=== PATIENT | female | born 1980 | race Caucasian/White ===

== ENCOUNTER 2017-04-02 09:50 | Emergency (ER) | payer BC ==
[~2017-04-02] VITALS: Ht 157.5 cm; Wt 104.9 kg
[2017-04-02 09:55] VITALS: BP 138/67; PULSE 117; TEMP 37; O2SAT 96; Ht 157.5 cm; Wt 104.9 kg
[2017-04-02 10:37] LABS: URINE APPEARANCE CLOUDY (CLEAR); URINE BILIRUBIN NEG (NEG); URINE COLOR YELLOW; URINE NITRITE NEG (NEG); URINE SPECIFIC GRAVITY 1.022 (1.000-1.030); UROBILINOGEN NEG (NEG); ZZUR CULT IF INDIC CLEAN CATCH YES
[2017-04-02 10:42] LABS: REVIEW REQ? YES
[2017-04-02 11:02] LABS: MANUAL MICROSCOPIC REQUIRED? YES; URINE RBC 0-4 /hpf (0-4); URINE WBC >30 /hpf (0-5)
[2017-04-02 11:03] LABS: URINE BACTERIA 1+ (NEG); URINE TRICHOMONAS PRESENT (NONE PRSENT)
--- NOTE | 2017-04-02 11:33 | EMERGENCY ROOM VISIT NOTE ---
History First contact with patient: 10:29 Chief Complaint: VAGINAL DISCHARGE Stated Complaint: BLOATING,FATIGUE,VAGINAL IRRITATION,ACKINESS History of Present Illness The patient is a 36 year old female who presents to the Emergency Room with complaints of vaginal discharge. The patient states that 2 weeks ago she noticed a significant amount of vaginal discharge. She states that she feels tired and bloated. She thought it was he stands tried Monistat for 3 days but did not have any improvement. She states that she has continued vaginal discharge and notices itching in the vaginal area. The patient took Excedrin one time. She reports dullness and soreness but not true pain. She denies any chills. She denies any chest pain, trouble breathing. She denies any true abdominal pain. She denies any diarrhea. She is actually active with 1 partner , her . She has never had a 60 transmitted infection in the past. Review of Systems A 10 system review of systems was completed with positives and pertinent negatives listed in the HPI. Past Medical/Surgical History Patient denies Social History Smoking Status: Former Smoker Marital Status: Housing Status: lives with family Current/Historical Medications Scheduled Metronidazole (Flagyl), 500 MG PO BID Allergies Coded Allergies: No Known Allergies (Unverified , 04/02/17) Physical Exam Vital Signs Date Time Temp Pulse Resp B/P Pulse Ox O2 Delivery O2 Flow Rate FiO2 04/02/17 09:55 37.0 117 18 138/67 96 Room Air Physical Exam VITALS: Vitals are noted on the nurse's note and reviewed by myself. Vital signs stable. GENERAL: This is a 36-year-old female, in no acute distress, nondiaphoretic, well-developed well-nourished. SKIN: The skin was without rashes, erythema, edema, or bruising. There is no tenting of the skin. Capillary reflex less than 2 seconds. HEAD: Normocephalic atraumatic. EARS: The external ears are normal in appearance. EYES: Pupils equal round and reactive to light and accommodation. Conjunctivae without injection, sclerae without icterus. Extraocular movements intact. NOSE: Patent, turbinates without inflammation or discharge. MOUTH: Mucous membranes moist. Tonsils are not enlarged. Pharynx without erythema or exudate. Uvula midline. Airway patent. Tongue does not deviate. NECK: Supple without nuchal rigidity. No lymphadenopathy. No thyromegaly. Cervical spine is nontender. No JVD. HEART: Regular rate and rhythm without murmurs gallops or rubs. LUNGS: Clear to auscultation bilaterally without wheezes, rales or rhonchi. No retractions or accessory muscle use. ABDOMEN: Positive bowel sounds x 4. Soft, mild diffuse tenderness, without masses or organomegaly. : There is diffuse irritation over the labia. There is a moderate amount of white discharge. There is no cervicitis or cervical motion tenderness. There is no adnexal mass. There is minimal right-sided adnexal tenderness. MUSCULOSKELETAL: No muscle atrophy, erythema, or edema noted. Full range of motion in all extremities. Normal gait. Strength 5/5 throughout. NEURO: Patient was alert and oriented to person place and time. No focal neurological deficits. Medical Decision & Procedures Laboratory Results Test 04/02/17 10:21 04/02/17 11:12 Urine Color YELLOW Urine Appearance CLOUDY (CLEAR) Urine pH 5.0 (4.5-7.5) Urine Specific [place] 1.022 (1.000-1.030) Urine Protein NEG (NEG) Urine Glucose (UA) NEG (NEG) Urine Ketones TRACE (NEG) Urine Occult Blood NEG (NEG) Urine Nitrite NEG (NEG) Urine Bilirubin NEG (NEG) Urine Urobilinogen NEG (NEG) Urine Leukocyte Esterase LARGE (NEG) Urine WBC (Auto) /hpf (0-5) Urine RBC (Auto) /hpf (0-4) Urine Hyaline Casts (Auto) /lpf (0-5) Urine Epithelial Cells (Auto) /lpf (0-5) Urine Bacteria (Auto) (NEG) Urine RBC 0-4 /hpf (0-4) Urine WBC >30 /hpf (0-5) Urine Epithelial Cells >30 /lpf (0-5) Urine Bacteria 1+ (NEG) Urine Trichomonas PRESENT (NONE PRSENT) Urine Yeast (Auto) (NONE PRSENT) Urine Test NEG (NEG) Date/Time Source Procedure Growth Status 04/02/17 11:12 Vaginal Swab Trichomonas Preparation - Final Complete ED Course The patient was seen and examined. Previous visits were reviewed. Medication list was reviewed. The patient presents emergency Department with vaginal irritation and discharge. She reports nonspecific bloating and diffuse discomfort over the abdomen. She is afebrile and has not had any nausea, vomiting, diarrhea. The patient has some minimal lower abdominal tenderness on examination. I discussed potentially performing laboratory studies and potentially imaging for further evaluation of the abdomen. The patient's symptoms do seem to be more pelvic in nature. After discussion, the patient would like to defer additional testing at this time. We also discussed the possibility of ovarian cyst but the patient states she has an appointment with her [employer] and will discuss it with them. A pelvic exam was performed. There was a moderate amount of whitish discharge. Pelvic cultures were sent. Urine test was negative. Trichomonas was found on the vaginal swab and on the urinalysis. The patient will be placed on Flagyl to cover for Trichomonas and potential bacterial vaginitis. She was advised that she would need to advise her sexual partners and they should also be treated for Trichomonas. I offered to treat the patient empirically for gonorrhea and chlamydia but she declines and would like to wait for the cultures. Her urinalysis suggests possible urinary tract infection versus contamination. Given the vaginal infection, this may be contamination. We will await urine culture. She was advised to stop the topical medications as this could be causing some irritation to the external genitalia. The patient should return to the ER with any worsening symptoms. The case was discussed with Dr. Morales who agrees with the assessment and treatment plan Medical Decision DIFFERENTIAL DIAGNOSIS: Pelvic inflammatory disease, ovarian cyst, ovarian torsion, ovarian rupture, , ectopic , endometriosis, endometritis, urinary tract infection, ruptured ovarian cyst, tubo-ovarian abscess, a Hepatitis, cholecystitis, cholangitis, biliary colic, pancreatitis, pneumonia, subdiaphragmatic abscess, appendicitis, inguinal hernia, nephrolithiasis, inflammatory bowel disease, mesenteric adenitis, peptic ulcer disease, GERD, gastritis, pancreatitis, myocardial infarction, pericarditis, ruptured aortic aneurysm, appendicitis, gastroenteritis, bowel obstruction, splenic infarct, diverticulitis, mesenteric ischemia, metabolic, peritonitis, among others. Impression Primary Impression: Infection due to trichomonas Additional Impression: Vaginal discharge Departure Information Dispostion Home / Self-Care Condition GOOD Prescriptions Metronidazole (Flagyl) 500 Mg Tab 500 MG PO BID for 7 Days, #14 TAB Prov: Demi Fry PA-C 04/02/17 Referrals No Doctor, Assigned (PCP) Patient Instructions ED Vaginitis Trichomonas, My [facility] Additional Instructions Stop the topical medications Flagyl every 12 hours for 7 days Have your urine rechecked by your doctor in 1 week; we will call you if the urine culture indicates the need to change treatment Your sexual partner should be treated as well for trichamonas Return with fevers or generalized worsening symptoms Problem Qualifiers
[2017-04-02] MEDS ORDERED: METR-163 PO (11:43)
[2017-04-03] MEDS ORDERED: ONDA4TAB10 SL (10:49)
--- NOTE | 2017-04-04 12:47 | Pharmacy Progress Note ---
ED Pharmacist Culture FollowUp Date of Service: April 04, 2017. Patient called 04/04 @ 1230 requesting culture results * Trichomonas: patient was already aware of the positive Trichomonas and is being treated with Flagyl * Gardnerella: informed of Gardnerella isolated in genital culture. Counseled that this is not considered a sexually transmitted infection, but does result more often in sexually active patients. No clue cells seen - may not be true infection. Patient was sent home with a prescription for metronidazole, which should cover this if it is a true infection. * Chlamydia and Gonorrhea serologies still pending. * Patient requested phone call if they are positive or negative * Patient provided verbal consent to leave results (*either* positive or negative) as a voicemail on the line below if she does not last picker * Discussed need for treatment if either results as positive * Patient confirmed contact number of
[2017-04-04 15:13] LABS: CHLAMYDIA TRACH RNA*** NOT DETECTED (NOT DETECTED); GC (NEIS GONORRHOEAE)RNA** NOT DETECTED (NOT DETECTED)
[2017-04-20] MEDS ORDERED: HYDR-5688 PO (05:44)
[2017-09-01] MEDS ORDERED: METR-163 PO (13:43)
== END 2017-04-02 11:55 | disposition home or self-care (01) ==
LOC: C.EDB 09:53
DX: A59.01 Trichomonal vulvovaginitis (principal); Z87.891 Personal history of nicotine dependence

== ENCOUNTER 2017-04-03 07:48 | Emergency (ER) | payer BC ==
[~2017-04-03] VITALS: Ht 157.5 cm; Wt 105.3 kg
[~2017-04-03 07:48] MED LIST: METR-163 PO
[2017-04-03 07:52] VITALS: TEMP 36.5; Ht 157.5 cm; Wt 105.3 kg
[2017-04-03] MEDS ORDERED: ONDANSETRON INJ 2 MG/ML 2 ML VIAL IV STA (08:27)
[2017-04-03] MEDS ORDERED: SODIUM CHLORIDE 0.9% 1000ML 1,000 ML IV STA (08:27)
[2017-04-03] MEDS ORDERED: KETOROLAC TROMETHAMINE 30 MG/ML VIAL IV STA (08:38)
--- NOTE | 2017-04-03 10:35 | EMERGENCY ROOM VISIT NOTE ---
History First contact with patient: 07:57 Chief Complaint: VOMITING Stated Complaint: SEVERE N,V, W/FOOD, ALVARADO, NECKACHE-POSS MED REACTION Nursing Triage Summary: On metronidazole for trichamoniasis and vaginosis, last night felt extreme nausea and headache. This morning felt a little better, was hydrating with water last night. Took another dose of antibiotic at 0500, felt immediatley nauseated , can't drink. Vomited that dose, this was only emesis today. Pt feels some soreness in neck and upper back, denies photophobia, is able to touch chin to chest with minor pain. Feels "clammy". History of Present Illness The patient is a 36 year old female who presents to the Emergency Room with complaints of nausea/vomiting, and headache that started last night. Patient was seen in this ER yesterday, diagnosed with trichomoniasis and vaginosis and started on metronidazole. Patient states she took her first dose of the metronidazole last night around 9 PM, which was followed shortly by the nausea and vomiting. She states she began to have a headache associated with the vomiting. She took her dose of metronidazole's morning at 5 AM after eating a small piece of bread, and continued to have severe nausea with vomiting. She denies vision changes, neck pain, dizziness, chest pain, shortness of breath, severe abdominal pain, vomiting blood or bile, fever/chills. She adamantly denies use of any alcohol. Review of Systems GENERAL: Denies fevers, chills, malaise, fatigue, unintentional weight changes. HEENT: Denies dizziness, visual problems, hearing loss, tinnitus. Denies difficulty swallowing or oral lesions. PULMONARY: Denies cough, shortness of breath, sputum production or hemoptysis. CARDIOVASCULAR: Denies chest pain, palpitations, dyspnea on exertion, orthopnea or peripheral edema. GASTROINTESTINAL: + Nausea/vomiting. Denies diarrhea, constipation, or abdominal pain. GENITOURINARY: Denies dysuria, frequency, urgency or nocturia. NEUROLOGIC: Denies history of epilepsy, CVA, TIA or chronic headaches. MUSCULOSKELETAL: Denies history of joint tenderness/swelling. SKIN: Denies rashes or lesions. PSYCHIATRIC: Denies history of depression or mental illness. ENDOCRINE: Denies history of diabetes, thyroid disorders, abnormal hair growth or sexual dysfunction. Social History Smoking Status: Former Smoker Marital Status: Housing Status: lives with family Current/Historical Medications Scheduled Metronidazole (Flagyl), 500 MG PO BID Ondasetron Odt (Zofran Odt), 4 MG SL BID Allergies Coded Allergies: No Known Allergies (Unverified , 04/03/17) Physical Exam Vital Signs Date Time Temp Pulse Resp B/P Pulse Ox O2 Delivery O2 Flow Rate FiO2 04/03/17 11:31 103/65 04/03/17 11:18 79 97 04/03/17 11:01 115/84 04/03/17 10:48 81 21 96 04/03/17 10:31 113/78 04/03/17 10:18 80 94 04/03/17 09:49 99/74 04/03/17 09:48 80 23 04/03/17 09:18 81 14 97 04/03/17 09:06 125/87 04/03/17 08:48 90 25 04/03/17 08:18 92 04/03/17 08:11 91 04/03/17 07:52 36.5 98 18 135/88 96 Room Air Physical Exam CONSTITUTIONAL: No acute distress. Well appearing and well nourished. Alert and oriented X 4 with normal affect. HEENT: Normocephalic, atraumatic. Pupils equal, round and reactive to light, EOMI. TMs normal. Pharynx normal. Dry mucous membranes. NECK: Supple, full active range of motion without discomfort. RESPIRATORY: Clear to auscultation bilaterally with no wheezing, crackles, rhonchi or stridor. Equal expansion bilaterally. CARDIOVASCULAR: Regular rate and rhythm with no murmurs, rubs or gallops. Normal peripheral perfusion. No edema. GASTROINTESTINAL: Soft, nontender, nondistended. Bowel sounds present in all quadrants. MUSCULOSKELETAL: Full range of motion of all joints without discomfort. INTEGUMENTARY: No rash or other significant dermatologic conditions noted. NEUROLOGIC: Cranial nerves II-XII grossly intact. No focal neurologic deficits noted. Normal motor, normal sensation, normal coordination, normal gait. Medical Decision & Procedures Medications Administered Medications (Trade) Dose Ordered Sig/Nia Route Start Time Stop Time Status Last Admin Dose Admin Sodium Chloride (Nss 1000ml) 1,000 ml @ 999 mls/hr Q1H1M STAT IV 04/03/17 08:27 04/03/17 09:27 DC 04/03/17 09:06 999 MLS/HR Ondansetron HCl (Zofran Inj) 4 mg NOW STAT IV 04/03/17 08:27 04/03/17 08:29 DC 04/03/17 09:07 4 MG Ketorolac Tromethamine (Toradol Inj) 15 mg NOW STAT IV 04/03/17 08:38 04/03/17 08:39 DC 04/03/17 09:07 15 MG Medical Decision CC: Patient presenting with complaint of nausea/vomiting and headache Differential Diagnosis: Includes, but not limited to medication reaction, dehydration, gastroenteritis, migraine headache, tension headache Summary: Patient was evaluated at bedside, history of physical exam performed. She is alert and in no acute distress, but does appear mildly uncomfortable. She does look mildly dehydrated. She is not actively vomiting or dry heaving, but does complain of persistent nausea. Orders were placed at bedside for IV fluids bolus, Zofran, and Toradol to treat for headache and side effects of medication. She had a negative test done yesterday. Patient discussed with Dr. Moise, who agrees with my assessment and plan. Patient symptoms seemed consistent with side effects related to recent start of Flagyl. This seems to be especially exacerbated by taking the food on an empty stomach and at on times of day. Patient was educated on proper administration of medication, and reinforced again not to take any alcohol with this medication. Patient reassessed multiple times throughout ED stay, with good improvement in her overall clinical state, she appears well and is tolerating oral fluids. She was instructed to continue the Flagyl regimen for the full course to treat her trichomoniasis. Rx for Zofran provided for symptom management. She was instructed to follow closely with her PCP. Impression Primary Impression: Nausea and vomiting Departure Information Dispostion Home / Self-Care Condition GOOD Prescriptions Ondasetron Odt (ZOFRAN ODT) 4 Mg Tab 4 MG SL BID for Nausea for 6 Days, #12 TAB Prov: Evette Hutchison CRNP 04/03/17 Referrals No Doctor, Assigned (PCP) Patient Instructions ED Nausea Vomiting, Metronidazole Oral tablet, [facility] Additional Instructions Drink plenty of fluids to stay well hydrated. Take the Zofran 20-30 minutes prior to taking the Flagyl medication. This will help to prevent nausea/vomiting. Continue taking the Flagyl as prescribed for the full course of antibiotics and do not skip any doses. Take this medication with a full meal, recommend breakfast and dinner. Do not resume sexual intercourse until both you and your partner have been fully treated. We recommend that you get retested prior to resuming sexual intercourse. Follow-up with your PCP in the next few days to be reassessed. Please return to the ER for worsening symptoms, including severe abdominal pain , vomiting blood or bile, fever/chills, or any other concerns. Problem Qualifiers Primary Impression: Nausea and vomiting Vomiting type: unspecified Vomiting Intractability: non-intractable Qualified Codes: R11.2 - Nausea with vomiting, unspecified
[2017-04-03] MEDS ORDERED: ONDA4TAB10 SL (10:49)
[2017-04-03 11:18] VITALS: PULSE 79; O2SAT 97
[2017-04-03 11:31] VITALS: BP 103/65
[2017-04-20] MEDS ORDERED: HYDR-5688 PO (05:44)
[2017-09-01] MEDS ORDERED: METR-163 PO (13:43)
== END 2017-04-03 11:38 | disposition home or self-care (01) ==
LOC: C.EDB 07:49
DX: R11.2 Nausea with vomiting, unspecified (principal); Z87.891 Personal history of nicotine dependence

== ENCOUNTER → 2017-04-12 | Outpatient (CLI) | payer BC ==
[~2017-04-12] MED LIST changes: +HYDR-5688 PO; +Tramadol PO
== END | disposition home or self-care (01) ==
LOC: C.LABSPEC 16:47
PROVIDERS: ATTEND Physician Assistant
DX: L29.8 Other pruritus (principal)

== ENCOUNTER → 2017-04-12 | Outpatient (CLI) | payer BC | END | disposition home or self-care (01) | LOC: C.PAPS 10:02 | PROVIDERS: ATTEND Physician Assistant | DX: Z01.419 Encounter for gynecological examination (general) (routine) without abnormal findings (principal) ==

== ENCOUNTER 2017-04-13 02:09 | Emergency (ER) | payer BC ==
[~2017-04-13] VITALS: Ht 157.5 cm; Wt 103.0 kg
[2017-04-13 02:16] VITALS: TEMP 36.5; Ht 157.5 cm; Wt 103.0 kg
[2017-04-13] MEDS ORDERED: ONDANSETRON INJ 2 MG/ML 2 ML VIAL IV STA (02:35)
[2017-04-13] MEDS ORDERED: MoRPHine SULFATE 4 MG/ML 1 ML CARP\\VIAL IV STA (02:35)
[2017-04-13] MEDS ORDERED: SODIUM CHLORIDE 0.9% 1000ML 1,000 ML IV STA ×2 (02:35)
[2017-04-13 02:55] VITALS: O2SAT 95
[2017-04-13 03:02] LABS: BASO % 0.7 %; BASO ABS # 0.05 K/uL (0-0.2); COMPLETE YES; EOS % 3.2 %; HEMATOCRIT 45.4 % (37-47); IG% 0.3 %; LYMPH % 28.2 %; LYMPH ABS # 2.11 K/uL (1.2-3.4); MEAN CELL VOLUME 81.5 fL (80-100); MEAN CORPUSCULAR HEMOGLOBIN 28.5 pg (25-34); MEAN PLATELET VOLUME 11.3 fL (7.4-10.4); MONO % 9.1 %; NEUT % 58.5 %; PLATELET COUNT 221 K/uL (130-400); RED BLOOD COUNT 5.57 M/uL (4.2-5.4); WHITE BLOOD COUNT 7.49 K/uL (4.8-10.8)
[2017-04-13 03:14] LABS: URINE APPEARANCE CLEAR (CLEAR); URINE BILIRUBIN NEG (NEG); URINE COLOR YELLOW; URINE EPITHELIAL CELL AUTO >30 /lpf (0-5); URINE NITRITE NEG (NEG); URINE SPECIFIC GRAVITY 1.013 (1.000-1.030); UROBILINOGEN NEG (NEG)
[2017-04-13 03:15] LABS: MANUAL MICROSCOPIC REQUIRED? NO; REVIEW REQ? NO
[2017-04-13 03:20] LABS: BUN/CREATININE RATIO 7.5 (10-20); CALCIUM 8.8 mg/dl (8.5-10.1); CREATININE 0.99 mg/dl (0.60-1.20); POTASSIUM 3.4 mmol/L (3.5-5.1)
[2017-04-13] MEDS ORDERED: OPTIRAY 320 IV PRN (05:45)
--- NOTE | 2017-04-13 06:24 | EMERGENCY ROOM VISIT NOTE ---
History First contact with patient: 02:16 Chief Complaint: ABDOMINAL PAIN Stated Complaint: ABD PAIN History of Present Illness The patient is a 36 year old female who presents to the Emergency Room with complaints of right upper quadrant pain for the past 2 weeks he was recently treated for Trichomonas along with her partner. Patient still complains of pelvic pain. This is her third visit to this ER for the same complaint. Patient had a negative gonorrhea and chlamydia test. Patient describe the pain as aching, ranging in severity 8 out of 10 that radiates to her shoulder. Nothing makes it better or worse. Patient denies chest pain, dyspnea, cough, congestion, back pain, urinary symptoms, vaginal itching or discharge. Patient saw her OB today and has a scheduled outpatient ultrasound. Review of Systems See HPI for pertinent positives & negatives. A total of 10 systems reviewed and were otherwise negative. Past Medical/Surgical History None Social History Smoking Status: Current Every Day Smoker Alcohol Use: occasionally Drug Use: none Marital Status: Housing Status: lives with family Current/Historical Medications No Active Prescriptions or Reported Meds Allergies Coded Allergies: No Known Allergies (Unverified , 04/13/17) Physical Exam Vital Signs Date Time Temp Pulse Resp B/P (MAP) Pulse Ox O2 Delivery O2 Flow Rate FiO2 04/13/17 05:09 84 16 111/72 96 Room Air 04/13/17 03:00 99 04/13/17 02:55 95 Room Air 04/13/17 02:16 36.5 118 20 119/82 98 Room Air Physical Exam VITALS: Vitals are noted on the nurse's note and reviewed by myself. Vital signs stable. GENERAL: Pleasant female, in no acute distress, nondiaphoretic, well-developed well-nourished. SKIN: The skin was without rashes, erythema, edema, or bruising. There is no tenting of the skin. Capillary reflex less than 2 seconds. HEAD: Normocephalic atraumatic. EARS: External auditory canals clear, tympanic membranes pearly singh without erythema or effusion bilaterally. EYES: Pupils equal round and reactive to light and accommodation. Conjunctivae without injection, sclerae without icterus. Extraocular movements intact. NOSE: Patent, turbinates without inflammation or discharge. MOUTH: Mucous membranes moist. Pharynx without erythema or exudate. Uvula midline. Airway patent. Tongue does not deviate. NECK: Supple without nuchal rigidity. No lymphadenopathy. No thyromegaly. Cervical spine is nontender. No JVD. HEART: Regular rate and rhythm without murmurs gallops or rubs. LUNGS: Clear to auscultation bilaterally without wheezes, rales or rhonchi. No dullness to percussion. No retractions or accessory muscle use. ABDOMEN: Positive bowel sounds x 4. Normal tympanic percussion. Soft, tender to palpation right upper quadrant, no CVA tenderness, without masses or organomegaly. No guarding or rebound tenderness. exam: Minimal suprapubic tenderness, normal external vaginal genitalia, no CMT or adnexal tenderness. Cultures taken and sent. Neighborhood Aide present MUSCULOSKELETAL: No muscle atrophy, erythema, or edema noted. NEURO: Patient was alert and oriented to person place and time. Normal sensation to light and sharp touch. No focal neurological deficits. Medical Decision & Procedures Laboratory Results 04/13/17 02:45 Red Blood Count 5.57, Mean Corpuscular Volume 81.5, Mean Corpuscular Hemoglobin 28.5, Mean Corpuscular Hemoglobin Concent 35.0, Mean Platelet Volume 11.3, Neutrophils (%) (Auto) 58.5, Lymphocytes (%) (Auto) 28.2, Monocytes (%) (Auto) 9.1, Eosinophils (%) (Auto) 3.2, Basophils (%) (Auto) 0.7, Neutrophils # (Auto) 4.39, Lymphocytes # (Auto) 2.11, Monocytes # (Auto) 0.68, Eosinophils # (Auto) 0.24, Basophils # (Auto) 0.05 04/13/17 02:45 Test 04/13/17 02:35 04/13/17 02:40 04/13/17 02:45 04/13/17 02:54 Urine Color YELLOW Urine Appearance CLEAR (CLEAR) Urine pH 5.0 (4.5-7.5) Urine Specific [place] 1.013 (1.000-1.030) Urine Protein NEG (NEG) Urine Glucose (UA) NEG (NEG) Urine Ketones NEG (NEG) Urine Occult Blood 1+ (NEG) Urine Nitrite NEG (NEG) Urine Bilirubin NEG (NEG) Urine Urobilinogen NEG (NEG) Urine Leukocyte Esterase NEG (NEG) Urine WBC (Auto) 1-5 /hpf (0-5) Urine RBC (Auto) 0-4 /hpf (0-4) Urine Hyaline Casts (Auto) 1-5 /lpf (0-5) Urine Epithelial Cells (Auto) >30 /lpf (0-5) Urine Bacteria (Auto) NEG (NEG) White Blood Count 7.49 K/uL (4.8-10.8) Red Blood Count 5.57 M/uL (4.2-5.4) Hemoglobin 15.9 g/dL (12.0-16.0) Hematocrit 45.4 % (37-47) Mean Corpuscular Volume 81.5 fL (80-100) Mean Corpuscular Hemoglobin 28.5 pg (25-34) Mean Corpuscular Hemoglobin Concent 35.0 g/dl (32-36) Platelet Count 221 K/uL (130-400) Mean Platelet Volume 11.3 fL (7.4-10.4) Neutrophils (%) (Auto) 58.5 % Lymphocytes (%) (Auto) 28.2 % Monocytes (%) (Auto) 9.1 % Eosinophils (%) (Auto) 3.2 % Basophils (%) (Auto) 0.7 % Neutrophils # (Auto) 4.39 K/uL (1.4-6.5) Lymphocytes # (Auto) 2.11 K/uL (1.2-3.4) Monocytes # (Auto) 0.68 K/uL (0.11-0.59) Eosinophils # (Auto) 0.24 K/uL (0-0.5) Basophils # (Auto) 0.05 K/uL (0-0.2) RDW Standard Deviation 39.4 fL (36.4-46.3) RDW Coefficient of Variation 13.1 % (11.5-14.5) Immature Granulocyte % (Auto) 0.3 % Immature Granulocyte # (Auto) 0.02 K/uL (0.00-0.02) Anion Gap 10.0 mmol/L (3-11) Est Creatinine Clear Calc Drug Dose 86.7 ml/min Estimated GFR () 83.8 Estimated GFR (Non- 72.3 BUN/Creatinine Ratio 7.5 (10-20) Calcium Level 8.8 mg/dl (8.5-10.1) Total Bilirubin 0.6 mg/dl (0.2-1) Direct Bilirubin 0.1 mg/dl (0-0.2) Aspartate Amino Transf (AST/SGOT) 12 U/L (15-37) Alanine Aminotransferase (ALT/SGPT) 33 U/L (12-78) Alkaline Phosphatase 41 U/L (45-117) Total Protein 7.6 gm/dl (6.4-8.2) Albumin 4.0 gm/dl (3.4-5.0) Lipase 107 U/L (73-393) Bedside Lactic Acid Venous 1.42 mmol/L (0.90-1.70) Medications Administered Medications (Trade) Dose Ordered Sig/Nia Route Start Time Stop Time Status Last Admin Dose Admin Sodium Chloride 1,000 ml @ 999 mls/hr Q1H1M STAT IV 04/13/17 02:35 04/13/17 03:35 DC 04/13/17 03:13 999 MLS/HR Ondansetron HCl (Zofran Inj) 4 mg NOW STAT IV 04/13/17 02:35 04/13/17 02:37 DC 04/13/17 03:13 4 MG Morphine Sulfate (MoRPHine SULFATE INJ) 4 mg NOW STAT IV 04/13/17 02:35 04/13/17 02:37 DC 04/13/17 03:13 4 MG ED Course Prior records/ancillary studies reviewed. Triage Nursing notes reviewed. Additional history obtained from family. The patient's history was concerning for abdominal pain. Differential diagnosis: Etiologies such as STI, appendicitis, diverticulitis, PUD, biliary pathology, UTI, pancreatitis, obstruction, mesenteric ischemia, aortic pathology, infections, inflammatory bowel disease, renal colic, as well as others were entertained. Physical examination findings: As above. ER treatment provided: NSS, morphine, zofran On reassessment the patient felt better. Diagnostics interpreted by me: The labs revealed no worrisome leukocytosis. Negative urine. GC chlamydia pending Imaging studies: CT ABDOMEN & PELVIS: Liver, gallbladder, spleen, pancreas, adrenal glands are unremarkable. Kidneys similar in size and enhancement. No hydronephrosis or perinephric stranding. Normal appendix. No evidence of bowel obstruction. No diverticulitis. Bladder wall thickening, correlate with urinalysis for possible cystitis. No acute osseous findings. Radiologist: Bro Nettles M.D. Gallbladder Ultrasound concerning for sludge. Pelvic ultrasound concerning for endometrial polyp Exam and history seem consistent with right upper quadrant pain most likely biliary colic and pelvic pain. Patient saw OB today. She is advised to follow- up for this and for further workup. She is advised to see the family care for further workup for biliary colic and elevation hida scan. She is advised to avoid fatty foods. She is advised to return to the immediate for fevers, pain, worsening signs or symptoms or as needed. Patient did not have acute abdomen on exam. She is well-appearing. By the evaluation outlined above emergent etiologies such as appendicitis, diverticulitis, PUD, UTI, pancreatitis, obstruction, mesenteric ischemia, aortic pathology, infections, inflammatory bowel disease, renal colic, as well as others were deemed relatively unlikely. The pt informed about the findings as listed above. All questions were answered and pleased with the treatment. Return instructions were outlined and the patient was discharged in stable condition. Referral: The patient was referred back to their primary care physician and [facility] for follow-up in 2 to 3 days for a recheck of the current condition. Case reviewed with my attending. Medical Decision As above Impression Primary Impression: Biliary colic Additional Impressions: Pelvic pain Endometrial polyp Departure Information Dispostion Home / Self-Care Condition GOOD Prescriptions No Active Prescriptions or Reported Meds Referrals No Doctor, Assigned (PCP) Patient Instructions [facility] Additional Instructions Ibuprofen(Motrin, Advil) may be used for fever or pain. Use 600mg every six hours as needed. Take with food. Avoid using more than 2400mg in a 24 hour period. Do not use 2400mg per day for more than three consecutive days without physician direction. Prolonged inappropriate use can lead to stomach upset or ulcers. (AND/OR) Acetaminophen(Tylenol) may be used for fever or pain. Use 1000mg every six hours as needed. Avoid using more than 3000mg in a 24 hour period. Rest and drink plenty of fluids as tolerated. Continue current medications. Avoid strenuous activities and anything that worsens your pain. Resume normal activities once your symptoms resolve. Avoid fatty foods. Return to the ER immediately for abdominal pain, vomiting, fevers, chest pains, difficulty breathing, worsening of your condition, or as needed. Follow up with your primary physician in 2-3 days for a recheck of your current condition and for further workup on her gallbladder. Follow up with your [facility] doctor in 2-3 days for further workup. Call in today and let them know that you tend and ultrasound. Problem Qualifiers
[2017-04-13 06:54] VITALS: BP 116/67; PULSE 85; O2SAT 97
--- NOTE | 2017-04-13 07:35 | DIAGNOSTIC IMAGING REPORT ---
ULTRASOUND RIGHT UPPER QUADRANT ABDOMEN CLINICAL HISTORY: Right upper quadrant abdominal pain. COMPARISON STUDY: No priors. TECHNIQUE: Real-time, grayscale, and color flow sonography of the right upper quadrant of the abdomen was performed. Images are reviewed in the transverse and longitudinal planes. FINDINGS: Liver: The liver is normal in top normal in size and demonstrates heterogeneously increased echotexture consistent with hepatic steatosis. There is no intrahepatic biliary ductal dilatation. The main portal vein is patent. Gallbladder: The gallbladder is normal in appearance. No gallstones are identified. There is no gallbladder wall thickening or pericholecystic fluid. A sonographic Stokes's sign is reportedly absent. The common bile duct measures up to 0.4 cm in diameter. Pancreas: Visualized portions of the pancreatic head and body are normal in appearance. The splenic vein is patent. Right kidney: Survey images of the right kidney demonstrate normal size and echotexture. There is no hydronephrosis. Ascites: None. IMPRESSION: 1. No acute sonographic abnormality is identified in the right upper quadrant. No gallstones are seen. 2. Hepatic steatosis. Electronically signed by: Mark Anthony Bernal M.D. 04/13/2017 7:34 AM Dictated Date/Time: 04/13/2017 7:32 AM
--- NOTE | 2017-04-13 07:46 | DIAGNOSTIC IMAGING REPORT ---
CT SCAN OF THE ABDOMEN AND PELVIS WITH IV CONTRAST CLINICAL HISTORY: Right upper quadrant abdominal pain. COMPARISON STUDY: Abdominal ultrasound dated 04/13/2017. TECHNIQUE: Following the IV administration of 118 cc of Optiray 320, CT scan of the abdomen and pelvis is performed from the lung bases to the proximal femora. Images are reviewed in the axial, sagittal, and coronal planes. IV contrast was administered without complication. Automated dose control exposure was utilized. CT DOSE: 1152.02 mGy.cm FINDINGS: Lung bases: The heart is normal in size and without pericardial effusion. The lung bases are clear noting dependent hypoventilatory change. Liver: The contrast-enhanced liver is mildly enlarged, measuring 18.5 cm in length. The liver demonstrates diffusely diminished attenuation consistent with hepatic steatosis. Fatty sparing is seen adjacent to the gallbladder fossa. There is no intrahepatic biliary ductal dilatation. The hepatic veins and portal veins are patent. Gallbladder: Unremarkable. Spleen: Normal in size and attenuation. Pancreas: Mildly atrophic for age. Adrenal glands: Unremarkable. Kidneys: The contrast enhanced kidneys are normal in size and without hydronephrosis. The kidneys enhance symmetrically. Abdominal vasculature: The abdominal aorta is normal in course and caliber. Bowel: The small bowel and colon are normal in course and caliber. The appendix is well-visualized and normal. Peritoneum: There is no intraperitoneal free air or abdominal ascites. There is a fat-containing umbilical hernia. Lymphadenopathy: None. Pelvic viscera: The bladder is decompressed and appears circumferentially thick walled. The uterus and adnexa are normal as visualized noting bilateral ovarian follicles. Calcified phleboliths are noted in the pelvis. Skeletal structures: No lytic or blastic lesions are seen. IMPRESSION: 1. Although decompressed, the bladder wall appears thickened. Cortical clinically and with urinalysis for evidence of cystitis. 2. No additional infectious or inflammatory findings are suggested in the abdomen or pelvis. 3. Hepatomegaly and hepatic steatosis. Electronically signed by: Mark Anthony Bernal M.D. 04/13/2017 7:45 AM Dictated Date/Time: 04/13/2017 7:41 AM
--- NOTE | 2017-04-13 07:58 | DIAGNOSTIC IMAGING REPORT ---
PELVIC ULTRASOUND CLINICAL HISTORY: Pelvic pain. COMPARISON STUDY: None. TECHNIQUE: Transabdominal and transvaginal sonography of the pelvis was performed. FINDINGS: The uterus measures 6.7 x 3.4 x 4.4 cm. The endometrial measures 9 mm in thickness note. Note is made of a 1 x 0.6 x 1 cm echogenic lesion within the superior aspect of the endometrium. This could reflect a polyp. The right ovary measures 2.6 x 1.2 x 1.5 cm and the left measures 3.9 x 1.3 x 2.5 cm. There is a dominant follicle within the left ovary. Color flow is identified within each ovary. There is no free fluid. There is apparent debris within the bladder. IMPRESSION: 1. No evidence of ovarian torsion. 2. No free fluid. 3. 1 cm echogenic lesion within the endometrium which may reflect a polyp. Gynecologic consultation is recommended. Electronically signed by: Julius Ledesma M.D. 04/13/2017 7:57 AM Dictated Date/Time: 04/13/2017 7:54 AM
[2017-04-16 11:29] LABS: CHLAMYDIA TRACH RNA*** NOT DETECTED (NOT DETECTED); GC (NEIS GONORRHOEAE)RNA** NOT DETECTED (NOT DETECTED)
[2017-04-20] MEDS ORDERED: HYDR-5688 PO (05:44)
[2017-09-01] MEDS ORDERED: METR-163 PO (13:43)
== END 2017-04-13 06:55 | disposition home or self-care (01) ==
LOC: C.EDB 02:10
DX: K80.50 Calculus of bile duct without cholangitis or cholecystitis without obstruction (principal); R10.2 Pelvic and perineal pain; N84.0 Polyp of corpus uteri; F17.200 Nicotine dependence, unspecified, uncomplicated

== ENCOUNTER → 2017-04-17 | Outpatient (CLI) | payer BC ==
[~2017-04-17] MED LIST changes: +MoRPHine SULFATE 2 MG/ML CARP ONE
--- NOTE | 2017-04-17 14:38 | DIAGNOSTIC IMAGING REPORT ---
NUCLEAR MEDICINE HEPATOBILIARY SCAN CLINICAL HISTORY: Right upper quadrant tenderness. Positive Stokes sign. COMPARISON: Right upper quadrant ultrasound and CT of the abdomen and pelvis April 13, 2017. TECHNIQUE: 5.5 mCi of technetium 99m Choletec IV was injected at 1:00 PM on April 17, 2017. Immediately following injection, imaging of the abdomen was carried out for 60 minutes in the anterior projection. Gallbladder activity was not identified at 60 minutes and therefore 2 mg of morphine was administered IV. Imaging was carried out for an additional 15 minutes. FINDINGS: Hepatic uptake of radiotracer is prompt and homogeneous. Activity is first identified within the common bile duct and the small bowel bowel at 10 minutes. Gallbladder activity is not identified at 60 minutes. Gallbladder activity was identified 15 minutes following morphine administration. IMPRESSION: 1. No evidence of acute cholecystitis. 2. Delayed visualization of gallbladder activity which suggests chronic cholecystitis. Electronically signed by: Julius Ledesma M.D. 04/17/2017 2:37 PM Dictated Date/Time: 04/17/2017 2:32 PM
== END | disposition home or self-care (01) ==
LOC: C.NUCL 12:38
PROVIDERS: ATTEND Physician Assistant
DX: R10.811 Right upper quadrant abdominal tenderness (principal)

== ENCOUNTER 2017-04-19 09:28 | Observation (INO) | payer BC ==
[2017-04-19] VITALS (7 sets, daily range): BP systolic 91–112; BP diastolic 59–72; PULSE 60–83; TEMP 36.6–37.1; O2SAT 93–96; Ht 160 cm; Wt 101.0 kg
[~2017-04-19] VITALS: Ht 160 cm; Wt 101.0 kg
--- NOTE | 2017-04-19 09:51 | History and Physical ---
History & Physical Date Apr 19, 2017. Chief Complaint RUQ abd pain History of Present Illness The patient is a 36 year old female with complaints of Additional History Hepatic Disease: No Endocrine Disorder: No Kidney Disease: No Hypertension: No Heart Disease: No Infectious Diseases: Yes (vaginitis) Allergies Coded Allergies: No Known Allergies (Unverified , 04/13/17) Home Medications No Active Prescriptions or Reported Meds Physical Examination Skin: warm/dry, no rash Eyes: sclerae normal Head: atraumatic Neck: supple Respiratory/Chest: no respiratory distress Cardiovascular: regular rate, rhythm Abdomen / GI: + pertinent finding (soft) Neurologic/Psych: alert Diagnosis chronic cholecystitis Plan of Treatment for laparoscopic cholecystectomy today
[2017-04-19] MEDS ORDERED: ONDANSETRON INJ 2 MG/ML 2 ML VIAL IV PRN ×2 (10:00→12:30)
[2017-04-19] MEDS ORDERED: HYDROmorphone INJ 1 MG/ML SYR IV PRN ×2 (10:00)
[2017-04-19] MEDS ORDERED: PROMETHAZINE HCL INJ 25 MG in SODIUM CHLORIDE 0.9% 50ML 50 ML IV PRN (10:00)
[2017-04-19] MEDS ORDERED: BUPIVACAINE 0.5 % 5 MG/1 ML MPF 30ML VIAL ONE (10:25)
[2017-04-19] MEDS ORDERED: FENTANYL CITRATE INJ 50 MCG/1 ML 2 ML VIAL ONE ×2 (10:27→11:07)
[2017-04-19] MEDS ORDERED: MIDAZOLAM HCL 1 MG/ML 2ML VIAL ONE (10:27)
[2017-04-19] MEDS: LACTATED RINGER'S 1000ML 1,000 ML IV SCH (10:40)
[2017-04-19] MEDS ORDERED: Tramadol PO (10:56)
[2017-04-19] MEDS: CEFUROXIME IV 1,500 MG in DEXTROSE 5% 100ML 100 ML IV SCH ×2 (11:08→18:17)
[2017-04-19] MEDS ORDERED: HYDROmorphone INJ 2 MG/ML SYR/VIAL ONE ×2 (11:40→12:11)
[2017-04-19] MEDS ORDERED: GLYCOPYRROLATE INJ 0.2 MG/ML VIAL ONE (11:43)
[2017-04-19] MEDS ORDERED: PROPOFOL IV EMULSION 10 MG/ML 20 ML VIAL IV ONE (11:43)
[2017-04-19] MEDS ORDERED: NEOSTIGMINE METHYLSULFATE 5 MG/5 ML SYR ONE (11:43)
[2017-04-19] MEDS ORDERED: ROCURONIUM BROMIDE 10 MG/ML 5 ML VIAL ONE (11:43)
[2017-04-19] MEDS ORDERED: LIDOCAINE HCL 2% 2 ML VIAL (20MG/ML) ONE (11:43)
[2017-04-19] MEDS ORDERED: ONDANSETRON INJ 2 MG/ML 2 ML VIAL ONE (11:43)
[2017-04-19] MEDS ORDERED: DEXAMETHASONE SOD INJ 4 MG/ML VIAL ONE (11:43)
[2017-04-19] MEDS ORDERED: IV FLUIDS COMPLETED PRN (11:45)
--- NOTE | 2017-04-19 11:59 | [facility] Post Operative Brief Note ---
Immediate Operative Summary Operative Date Apr 19, 2017. Pre-Operative Diagnosis Chronic Cholecystitis Post-Operative Diagnosis Same Procedure(s) Performed Laparoscopic Cholecystectomy Surgeon Dr. Mauro Air Shovel Operator Surgeon(s) [place] Crawford Estimated Blood Loss 5ml Findings small cystic duct Specimens a. gallbladder and contents Anesthesia gen Complication(s) None Disposition Recovery Room / PACU
[2017-04-19] MEDS ORDERED: HYDROCODONE/ACETAMOPHEN 5/325MG TAB PO PRN ×2 (12:00)
--- NOTE | 2017-04-19 12:19 | OPERATIVE REPORT ---
DATE OF OPERATION: 04/19/2017 NAME OF OPERATION: Laparoscopic cholecystectomy. PREOPERATIVE DIAGNOSIS: Chronic cholecystitis. POSTOPERATIVE DIAGNOSIS: Same. STAFF SURGEON: Dr. Mandeep Mauro. ASSISTANTS: Vidal Strickland PA-C and Li Horton PA-C ANESTHESIA: General. DESCRIPTION OF PROCEDURE: The patient was brought into the operating room and placed on the operating table in the supine position. Her abdomen was prepped and draped in the usual fashion. Pneumatic stockings and orogastric tube were placed. Incision was made just above the umbilicus, carrying dissection down through significant adipose tissue, identifying the fascia, placing a Veress needle, and producing pneumoperitoneum. An 11-mm port was placed at this level and then under visualization, three 5-mm ports placed, 1 cephalad and 2 laterally. At this point, the gallbladder was grasped and retracted. It was distended. The cystic duct and common bile duct were both easily identified. The gallbladder was aspirated of bile. The cystic duct dissected free, clipped and transected. The cystic artery dissected free, clipped and transected and the gallbladder dissected away from the liver bed in the usual fashion and placed in an Endobag. After appropriate irrigation and hemostasis, the Endobag was removed through the umbilical site. All ports were then removed. The fascia at the umbilical site closed using 0 Vicryl suture. Skin then reapproximated using subcuticular 4-0 Monocryl and Dermabond. The patient was transferred to recovery room in stable condition. I attest to the content of the Intraoperative Record and any orders documented therein. Any exception s are noted below.
[2017-04-19] MEDS ORDERED: ATROPINE SULFATE 0.1 MG/ML 5ML SYR IV PRN (12:30)
[2017-04-19] MEDS ORDERED: KETOROLAC TROMETHAMINE 30 MG/ML VIAL IV. PRN (12:30)
[2017-04-19] MEDS ORDERED: HYDROmorphone INJ 2 MG/ML SYR/VIAL IV PRN (12:30)
--- NOTE | 2017-04-19 13:37 | Anesthesiology Progress Note ---
Anesthesia Post Op Note Date & Time Apr 19, 2017 at 13:37 Vital Signs Pain Intensity: 5.0 Vital Signs Past 12 Hours Date Time Temp Pulse Resp B/P (MAP) Pulse Ox O2 Delivery O2 Flow Rate FiO2 04/19/17 13:20 Room Air 04/19/17 13:00 96 Room Air 04/19/17 13:00 36.8 74 16 112/68 (83) 96 Room Air 04/19/17 12:45 36.4 80 12 115/70 93 Room Air 04/19/17 12:35 78 12 111/70 92 Room Air 04/19/17 12:25 73 14 107/78 100 Mask 10 04/19/17 12:15 70 12 122/76 99 Mask 10 04/19/17 12:09 36.1 75 12 121/79 100 Mask 10 04/19/17 10:15 Room Air 04/19/17 10:13 37.1 83 18 106/72 Room Air Notes Mental Status: alert / awake / arousable, participated in evaluation Pt Amnestic to Procedure: Yes Nausea / Vomiting: adequately controlled Pain: adequately controlled Airway Patency, RR, SpO2: stable & adequate BP & HR: stable & adequate Hydration State: stable & adequate Anesthetic Complications: no major complications apparent
[2017-04-19] MEDS ORDERED: KETOROLAC TROMETHAMINE 30 MG/ML VIAL IV. SCH (14:00)
[2017-04-19] MEDS: KETOROLAC TROMETHAMINE 30 MG/ML VIAL IV. SCH (18:17)
[2017-04-20] MEDS: KETOROLAC TROMETHAMINE 30 MG/ML VIAL IV. SCH (00:06)
[2017-04-20] MEDS: LACTATED RINGER'S 1000ML 1,000 ML IV SCH (00:06)
[2017-04-20] MEDS: CEFUROXIME IV 1,500 MG in DEXTROSE 5% 100ML 100 ML IV SCH (03:02)
[2017-04-20 03:45] VITALS: BP 92/59; PULSE 58; TEMP 36.7; O2SAT 95
[2017-04-20] MEDS ORDERED: HYDR-5688 PO (05:44)
--- NOTE | 2017-04-20 05:47 | Discharge Instructions ---
Discharge Instructions Date of Service Apr 20, 2017. Admission Reason for Admission: Chronic Cholecystitis Discharge Discharge Diagnosis / Problem: chronic cholecystitis Discharge Goals Goal(s): Decrease discomfort, Improve function, Improve disease control Activity Recommendations Activity Limitations: as noted below Lifting Limitations: no more than 25 pounds Exercise/Sports Limitations: until after follow-up appointment May Resume Sexual Activity: when tolerated Shower/Bathe: no limitations (may shower, no bath for 1 week) Driving or Machine Use: resume 3 days after discharge SPECIAL CARE INSTRUCTIONS: * Cover incisions and change daily for comfort/drainage. * may leave uncovered with dermabond for constipation- may use Senokot S and Milk of magnesia twice daily as directed on the package may also use Miralax powder - mix 1/2 bottle (8.3oz bottle at pharmacy) in 32 oz Gatorade- drink over 3-4 hrs * May use ibuprofen for pain as tolerated. * Expect some swelling and bruising. Call your doctor if: * Temperature above 101 degrees * Pain not relieved by pain medicine ordered * There is increased drainage or redness from any incision * You have any unanswered questions or concerns [phone]. FOLLOW UP VISIT: If not already scheduled, please call the office for a follow-up visit. for 1-2 weeks- please call OFFICE PHONE NUMBER: Dr. Mauro Office . Current Hospital Diet Patient's current hospital diet: Regular Diet Discharge Diet Recommended Diet: Regular Diet Procedures Procedures Performed: Laparoscopic Cholecystectomy Pending Studies Studies pending at discharge: no Work Instructions Return To Work: after follow-up (will need at least 1 week off work, possibly 2 -3 weeks off) Medical Emergencies . Who to Call and When: Medical Emergencies: If at any time you feel your situation is an emergency, please call 911 immediately. . Non-Emergent Contact Non-Emergency issues call your: Primary Care Provider, Surgeon . "Provider Documentation" section prepared by Mandeep Mauro. . VTE Core Measure Inpt VTE Proph given/why not?: SCD's
[2017-04-20 06:57] VITALS: BP 117/79; PULSE 70; TEMP 36.9; O2SAT 97
[2017-04-20] MEDS: DOCUSATE SODIUM/SENNA 50/8.6MG TAB PO SCH ×2 (07:05→07:06)
[2017-04-20] MEDS: MAGNESIUM HYDROXIDE SUSP 30 ML UDC PO SCH (07:06)
--- NOTE | 2017-04-20 07:35 | DISCHARGE SUMMARY ---
DATE OF DISCHARGE: 04/20/2017. PRINCIPAL DIAGNOSIS: Biliary colic and chronic cholecystitis. PROCEDURES: The patient underwent laparoscopic cholecystectomy. HISTORY OF PRESENT ILLNESS: The patient is a 36-year-old female who has had recent right upper quadrant abdominal pain, presenting to the Emergency Room and then to my office yesterday. She had not been eating and did not feel that she would make it through the weekend without coming to the Emergency Room. We did proceed with laparoscopic cholecystectomy yesterday. HOSPITAL COURSE: The patient was brought in the hospital from my office. She was taken to the operating room where she underwent laparoscopic cholecystectomy, which she tolerated very well and has done well postoperatively requiring minimal pain medication. She is felt stable for discharge home today to be followed in the surgical clinic within 1-2 weeks.
--- NOTE | 2017-04-20 08:42 | Anesthesiology Progress Note ---
Anesthesia Post Op Note Date & Time Apr 20, 2017 at 08:41 Vital Signs Pain Intensity: 0.0 Vital Signs Past 12 Hours Date Time Temp Pulse Resp B/P (MAP) Pulse Ox O2 Delivery O2 Flow Rate FiO2 04/20/17 07:48 Room Air 04/20/17 06:57 36.9 70 19 117/79 (92) 97 Room Air 04/20/17 03:45 36.7 58 16 92/59 (70) 95 Room Air 04/20/17 00:02 Room Air 04/19/17 23:11 36.7 60 16 93/59 (70) 93 Room Air Notes Mental Status: alert / awake / arousable, participated in evaluation Pt Amnestic to Procedure: Yes Nausea / Vomiting: adequately controlled Pain: adequately controlled Airway Patency, RR, SpO2: stable & adequate BP & HR: stable & adequate Hydration State: stable & adequate Anesthetic Complications: no major complications apparent
[2017-04-20 09:28] VITALS: BP 117/79; PULSE 70; TEMP 36.9; O2SAT 97
[2017-09-01] MEDS ORDERED: METR-163 PO (13:43)
== END 2017-04-20 10:35 | disposition home or self-care (01) ==
LOC: C.MSW 09:49 → INTOOBSV 09:49
PROVIDERS: ADMIT Surgery; ATTEND Surgery
DX: K80.44 Calculus of bile duct with chronic cholecystitis without obstruction (principal); G47.33 Obstructive sleep apnea (adult) (pediatric); E66.9 Obesity, unspecified; Z68.41 Body mass index [BMI] 40.0-44.9, adult; Z87.891 Personal history of nicotine dependence

== ENCOUNTER → 2017-08-01 | Day surgery (SDC) | payer BC ==
[2017-07-05 07:59] VITALS: Ht 160 cm; Wt 100.0 kg
[~2017-08-01] VITALS: Ht 160 cm; Wt 100.0 kg
[~2017-08-01] MED LIST changes: +ATROPINE SULFATE 0.1 MG/ML 5ML SYR IV PRN; +DEXAMETHASONE SOD INJ 4 MG/ML VIAL ONE; +EpHEDrine SULFATE INJ 50 MG/ML AMP IV PRN; +FENTANYL CITRATE INJ 50 MCG/1 ML 2 ML VIAL IV PRN; +FENTANYL CITRATE INJ 50 MCG/1 ML 2 ML VIAL ONE; +FLUMAZENIL 0.1 MG/1 ML 10 ML VIAL IV PRN; -HYDR-5688 PO; +HYDROmorphone INJ 2 MG/ML SYR/VIAL IV PRN; +IBUPROFEN 600 MG TAB PO PRN; +KETOROLAC TROMETHAMINE 30 MG/ML VIAL IV. PRN; +LABETALOL HCL IV 5 MG/ML 20ML IV PRN; +LACTATED RINGER'S 1000ML 1,000 ML IV SCH; +LIDOCAINE HCL 2% 2 ML VIAL (20MG/ML) ONE; +MEPERIDINE HCL 25 MG/ML CARP IV PRN; +METOCLOPRAMIDE HCL INJ 5 MG/ML 2 ML VIAL IV PRN; -METR-163 PO; +MIDAZOLAM HCL 1 MG/ML 2ML VIAL ONE; -MoRPHine SULFATE 2 MG/ML CARP ONE; +NALOXONE HCL 0.4 MG/1 ML VIAL/CARP IV PRN; +ONDANSETRON INJ 2 MG/ML 2 ML VIAL IV PRN; +ONDANSETRON INJ 2 MG/ML 2 ML VIAL ONE; +OXYCODONE/ACETAMINOPHEN 5-325 TAB PO PRN; +PHENYLEPHRINE 100MCG/ML 5ML SYR IV PRN; +PROPOFOL IV EMULSION 10 MG/ML 20 ML VIAL IV ONE; +SODIUM CHLORIDE 0.9% 1000ML 1,000 ML IV SCH; -Tramadol PO
--- NOTE | 2017-08-01 11:42 | History & Physical Bridge Note ---
H&P Re-Evaluation Bridge Note: I have examined the patient, reviewed the History & Physical and in the interval since the performance of the History & Physical I have noted the following changes of clinical significance: No changes noted
--- NOTE | 2017-08-01 11:44 | Discharge Instructions-[facility]urgCtr ---
Discharge Instructions Date of Service Aug 01, 2017. Visit Reason for Visit: Submucous Leiomyoma Of Uterus Discharge Discharge Diagnosis / Problem: Hysteroscopy Discharge Goals Goal(s): Specific goals Activity Recommendations Activity Limitations: per Instructions/Follow-up section Anesthesia . Post Anesthesia Instructions: If you have had General Anesthesia or IV Sedation: * Do not drive today. * Resume driving when surgeon permits. * Do not make important decisions or sign legal documents today. * Call surgeon for: 1. Temperature elevations greater than 101 degrees F. 2. Uncontrollable pain. 3. Excessive bleeding. 4. Persistent nausea and vomiting. 5. Medication intolerance (nausea, vomiting or rash). * For nausea and vomiting use only clear liquids such as: tea, soda, bouillon until nausea subsides, then gradually increase diet as tolerated. * If you have any concerns or questions, call your surgeon's office. If physician is unavailable and it is an emergency, call 911 or go to the nearest emergency room. . Instructions / Follow-Up Instructions / Follow-Up ACTIVITY RECOMMENDATIONS: * Avoid tampons, douching, hot tubs, pools, and intercourse until bleeding has stopped. * May shower as usual. * No strenuous activity for 24-48 hours. After 24-48 hours, you may do anything you feel like doing (driving and sports are okay). SPECIAL CARE INSTRUCTIONS: Special Diet: * Mild nausea may occur in the immediate post-operative period. * Take clear liquids such as tea, cola or bouillon until all nausea has subsided; you may then resume your normal diet. Special Care: * Light bleeding and vaginal spotting can last from a few days to 3-4 weeks. Call your doctor if bleeding becomes heavier than the heaviest part of your period. * Check your temperature twice a day for one week. If it goes above 100.4 degrees Fahrenheit (38.0 Celsius), notify your doctor. * Call your doctor's office for an appointment for 6 weeks after your surgery. FOLLOW-UP VISIT: Call your doctor's office for an appointment for 6 weeks after your surgery. Diet Recommendations Home Diet: resume previous diet Pending Studies Studies pending at discharge: no Medical Emergencies . Who to Call and When: Medical Emergencies: If at any time you feel your situation is an emergency, please call 911 immediately. . Non-Emergent Contact Non-Emergency issues call your: Primary Care Provider . . "Provider Documentation" section prepared by Leydi Adams. .
--- NOTE | 2017-08-01 12:57 | OPERATIVE REPORT ---
DATE OF OPERATION: 08/01/2017 PREOPERATIVE DIAGNOSIS: Endometrial mass. POSTOPERATIVE DIAGNOSIS: Same. PROCEDURE: D&C, hysteroscopy. SURGEON: Dr. Leydi Adams. CURING PRESS MAINTAINER: None. ESTIMATED BLOOD LOSS: 5 mL. COMPLICATIONS: None. DISPOSITION: Stable to PACU. DESCRIPTION OF PROCEDURE: Sarita is a 36-year-old female who was brought to the operating room for D&C, hysteroscopy. She was placed on the table in the dorsal lithotomy position, prepped and draped in standard sterile fashion and a hard time-out was taken. The bladder was emptied of urine via straight catheterization. Man and weighted specula were introduced. The anterior lip of the cervix was grasped with a single-tooth tenaculum. Uterus was then sounded to 7.5 cm. The cervix was serially dilated to a 19-Bel[place]ian and then the hysteroscope was introduced. Polypoid-appearing tissue was seen arising from multiple ramos of the endometrial cavity. The scope was then withdrawn and a brief sharp curettage was carried out, retrieving some obvious polypoid tissue as well as some typical endometrial curettings. The scope was reintroduced and a single remnant polyp was still seen near the fundus. The scope was withdrawn. Polyp forceps and curettage were used to remove this last bit of polyp. When the scope was then reintroduced, a cleanly curetted cavity was seen. All instruments were then removed and the procedure was brought to completion. The patient was then transferred in stable condition to PACU, where she remains at the time of this dictation. I attest to the content of the Intraoperative Record and any orders documented therein. Any exception s are noted below.
--- NOTE | 2017-08-01 12:59 | Anesthesia Progress Nt - [facility] ---
Anesthesia Post Op Note Date & Time Aug 01, 2017 at 12:59 Vital Signs Pain Intensity: 2 Vital Signs Past 12 Hours Date Time Temp Pulse Resp B/P (MAP) Pulse Ox O2 Delivery O2 Flow Rate FiO2 08/01/17 12:47 75 23 94 08/01/17 12:47 37.1 75 16 111/70 95 Room Air 08/01/17 12:47 76 23 08/01/17 12:46 111/70 08/01/17 12:42 74 21 98 08/01/17 12:42 74 21 08/01/17 12:41 74 22 108/79 98 08/01/17 12:41 74 22 08/01/17 12:36 78 28 08/01/17 12:36 78 28 105/80 98 08/01/17 12:31 77 18 08/01/17 12:31 77 18 107/76 97 08/01/17 12:26 84 11 114/79 97 08/01/17 12:26 85 11 08/01/17 12:22 106/76 08/01/17 12:21 98 91 08/01/17 12:21 36.4 91 12 106/76 94 Diffusion Mask 6 08/01/17 12:21 98 Notes Mental Status: alert / awake / arousable, participated in evaluation Pt Amnestic to Procedure: Yes Nausea / Vomiting: adequately controlled Pain: adequately controlled Airway Patency, RR, SpO2: stable & adequate BP & HR: stable & adequate Hydration State: stable & adequate Anesthetic Complications: no major complications apparent
[2017-08-01 13:00] VITALS: TEMP 36.3
[2017-08-01 13:20] VITALS: BP 102/66; PULSE 80; O2SAT 94
== END | disposition home or self-care (01) ==
LOC: X.SURG 10:53
PROVIDERS: ATTEND Obstetrics & Gynecology
DX: N84.0 Polyp of corpus uteri (principal); Z83.79 Family history of other diseases of the digestive system; Z83.1 Family history of other infectious and parasitic diseases; Z82.3 Family history of stroke; Z83.3 Family history of diabetes mellitus; Z82.49 Family history of ischemic heart disease and other diseases of the circulatory system; Z87.891 Personal history of nicotine dependence

== ENCOUNTER 2018-01-24 20:37 | Emergency (ER) | payer BC, OTHER ==
[~2018-01-24] VITALS: Ht 157.5 cm; Wt 110.2 kg
[2018-01-24 20:44] VITALS: Ht 157.5 cm; Wt 110.2 kg
[2018-01-24] MEDS ORDERED: KETOROLAC TROMETHAMINE 30 MG/ML VIAL IV STA (21:55)
[2018-01-24 22:06] LABS: BASO % 0.4 %; BASO ABS # 0.03 K/uL (0-0.2); EOS % 2.8 %; EOS ABS # 0.24 K/uL (0-0.5); HEMATOCRIT 43.5 % (37-47); HEMOGLOBIN 14.9 g/dL (12.0-16.0); IG# 0.03 K/uL (0.00-0.02); LYMPH % 18.4 %; LYMPH ABS # 1.56 K/uL (1.2-3.4); MEAN CELL VOLUME 82.7 fL (80-100); MEAN CORPUSCULAR HEMOGLOBIN 28.3 pg (25-34); MEAN CORPUSCULAR HGB CONC 34.3 g/dl (32-36); MEAN PLATELET VOLUME 11.9 fL (7.4-10.4); MONO % 6.7 %; MONO ABS # 0.57 K/uL (0.11-0.59); NEUT % 71.3 %; NEUT ABS # 6.03 K/uL (1.4-6.5); PLATELET COUNT 192 K/uL (130-400); RED CELL DISTRIBUTION WIDTH CV 13.3 % (11.5-14.5); RED CELL DISTRIBUTION WIDTH SD 39.9 fL (36.4-46.3); WHITE BLOOD COUNT 8.46 K/uL (4.8-10.8)
[2018-01-24] MEDS ORDERED: CALC500C3 PO (22:12)
[2018-01-24] MEDS ORDERED: ASPI-390 PO (22:12)
--- NOTE | 2018-01-24 22:32 | DIAGNOSTIC IMAGING REPORT ---
CHEST ONE VIEW PORTABLE CLINICAL HISTORY: CHEST PAIN dyspnea COMPARISON STUDY: No previous studies for comparison. FINDINGS: The bones soft tissues and hemidiaphragms are normal. The cardiomediastinal silhouette is normal. The lungs are clear. The pulmonary vasculature is normal. IMPRESSION: Negative chest. The above report was generated using voice recognition software. It may contain grammatical, syntax or spelling errors. Electronically signed by: Delmar Love M.D. 01/24/2018 10:31 PM Dictated Date/Time: 01/24/2018 10:31 PM
[2018-01-24 22:44] LABS: ALBUMIN 4.2 gm/dl (3.4-5.0); ALT/SGPT 29 U/L (12-78); BLOOD UREA NITROGEN 10 mg/dl (7-18); CALCIUM 9.3 mg/dl (8.5-10.1); CARBON DIOXIDE 25 mmol/L (21-32); CREATININE 1.19 mg/dl (0.60-1.20); GLUCOSE 92 mg/dl (70-99); LIPASE 118 U/L (73-393); POTASSIUM 3.4 mmol/L (3.5-5.1); SODIUM 137 mmol/L (136-145)
[2018-01-24 22:49] LABS: ALKALINE PHOSPHATASE 47 U/L (45-117); AST/SGOT 16 U/L (15-37); TOTAL PROTEIN 8.1 gm/dl (6.4-8.2)
[2018-01-24] MEDS ORDERED: OPTIRAY 320 IV PRN (23:15)
[2018-01-25] MEDS ORDERED: LIDOCAINE HCL 2% VISC SOLN 20 ML UDC PO STA (00:43)
[2018-01-25] MEDS ORDERED: ALUMINUM/MAGNESIUM SUSP 30 ML UDC PO STA (00:43)
[2018-01-25 01:26] VITALS: BP 118/67; PULSE 88; TEMP 36.8; O2SAT 94
--- NOTE | 2018-01-25 05:54 | EMERGENCY ROOM VISIT NOTE ---
History First contact with patient: 21:44 Chief Complaint: BACK PAIN Stated Complaint: MID BACK PAIN, INDIGESTIONS, TINGLING IN SHOULDERS History of Present Illness The patient is a 37 year old female who presents to the Emergency Room with complaints of mid back pain that radiates to her arms with some epigastric discomfort for the past few days who saw the chiropractor yesterday with no real improvement of symptoms. She describes pain as aching, ranging in severity 6 out of 10. Nothing makes it better or worse. Patient denies dyspnea , abdominal pain, vomiting, diarrhea, diaphoresis, leg pain or swelling. She has traveled recently and she smokes. No family history of heart disease or blood clots. No injury to the area. No localized weakness. Review of Systems An 10 system review of systems was completed with positives and pertinent negatives listed in the HPI. Past Medical/Surgical History Medical Problems: (1) Chronic cholecystitis Cholecystectomy Social History Smoking Status: Current Every Day Smoker Alcohol Use: occasionally Drug Use: none Marital Status: Housing Status: lives with family Current/Historical Medications Scheduled PRN Dwlrjca-Njxhncvlpmmmg-Zviimloe (Excedrin Migraine), 2 TABS PO BID PRN for Pain Calcium Carbonate (Tums), 500 MG PO DAILY PRN for STOMACH UPSET Physical Exam Vital Signs Date Time Temp Pulse Resp B/P (MAP) Pulse Ox O2 Delivery O2 Flow Rate FiO2 01/25/18 01:26 36.8 88 18 118/67 94 Room Air 01/25/18 00:13 90 18 133/85 94 Room Air 01/24/18 22:25 86 17 120/76 94 Room Air 01/24/18 22:16 Room Air 01/24/18 22:16 Room Air 01/24/18 21:34 86 01/24/18 21:25 86 18 122/86 92 Room Air 01/24/18 20:44 36.7 86 20 124/73 97 Room Air Physical Exam VITALS: Vitals are noted on the nurse's note and reviewed by myself. Vital signs stable. GENERAL: Pleasant female, in no acute distress, nondiaphoretic, well-developed well-nourished. SKIN: The skin was without rashes, erythema, edema, or bruising. There is no tenting of the skin. Capillary reflex less than 2 seconds. HEAD: Normocephalic atraumatic. EARS: External auditory canals clear, tympanic membranes pearly singh without erythema or effusion bilaterally. EYES: Pupils equal round and reactive to light and accommodation. Conjunctivae without injection, sclerae without icterus. Extraocular movements intact. NOSE: Patent, turbinates without inflammation or discharge. MOUTH: Mucous membranes moist. Pharynx without erythema or exudate. Uvula midline. Airway patent. Tongue does not deviate. NECK: Supple without nuchal rigidity. No lymphadenopathy. No thyromegaly. Cervical spine is nontender. No JVD. HEART: Regular rate and rhythm without murmurs gallops or rubs. Chest minimally tender to palpation. LUNGS: Clear to auscultation bilaterally without wheezes, rales or rhonchi. No retractions or accessory muscle use. ABDOMEN: Positive bowel sounds x 4. Normal tympanic percussion. Soft, nontender, without masses or organomegaly. Stokes sign negative. No guarding or rebound tenderness. No CVA tenderness MUSCULOSKELETAL: No muscle atrophy, erythema, or edema noted. No thoracic or lumbar tenderness on exam. NEURO: Patient was alert and oriented to person place and time. Normal sensation to light and sharp touch. No focal neurological deficits. Medical Decision & Procedures Laboratory Results 01/24/18 21:25 Red Blood Count 5.26, Mean Corpuscular Volume 82.7, Mean Corpuscular Hemoglobin 28.3, Mean Corpuscular Hemoglobin Concent 34.3, Mean Platelet Volume 11.9, Neutrophils (%) (Auto) 71.3, Lymphocytes (%) (Auto) 18.4, Monocytes (%) (Auto) 6.7, Eosinophils (%) (Auto) 2.8, Basophils (%) (Auto) 0.4, Neutrophils # (Auto) 6.03, Lymphocytes # (Auto) 1.56, Monocytes # (Auto) 0.57, Eosinophils # (Auto) 0.24, Basophils # (Auto) 0.03 01/24/18 21:25 Test 01/24/18 21:25 01/25/18 00:49 White Blood Count 8.46 K/uL (4.8-10.8) Red Blood Count 5.26 M/uL (4.2-5.4) Hemoglobin 14.9 g/dL (12.0-16.0) Hematocrit 43.5 % (37-47) Mean Corpuscular Volume 82.7 fL (80-100) Mean Corpuscular Hemoglobin 28.3 pg (25-34) Mean Corpuscular Hemoglobin Concent 34.3 g/dl (32-36) Platelet Count 192 K/uL (130-400) Mean Platelet Volume 11.9 fL (7.4-10.4) Neutrophils (%) (Auto) 71.3 % Lymphocytes (%) (Auto) 18.4 % Monocytes (%) (Auto) 6.7 % Eosinophils (%) (Auto) 2.8 % Basophils (%) (Auto) 0.4 % Neutrophils # (Auto) 6.03 K/uL (1.4-6.5) Lymphocytes # (Auto) 1.56 K/uL (1.2-3.4) Monocytes # (Auto) 0.57 K/uL (0.11-0.59) Eosinophils # (Auto) 0.24 K/uL (0-0.5) Basophils # (Auto) 0.03 K/uL (0-0.2) RDW Standard Deviation 39.9 fL (36.4-46.3) RDW Coefficient of Variation 13.3 % (11.5-14.5) Immature Granulocyte % (Auto) 0.4 % Immature Granulocyte # (Auto) 0.03 K/uL (0.00-0.02) Anion Gap 7.0 mmol/L (3-11) Est Creatinine Clear Calc Drug Dose 74.3 ml/min Estimated GFR () 66.6 Estimated GFR (Non- 57.5 BUN/Creatinine Ratio 8.6 (10-20) Calcium Level 9.3 mg/dl (8.5-10.1) Total Bilirubin 0.4 mg/dl (0.2-1) Direct Bilirubin < 0.1 mg/dl (0-0.2) Aspartate Amino Transf (AST/SGOT) 16 U/L (15-37) Alanine Aminotransferase (ALT/SGPT) 29 U/L (12-78) Alkaline Phosphatase 47 U/L (45-117) Troponin I < 0.015 ng/ml (0-0.045) Total Protein 8.1 gm/dl (6.4-8.2) Albumin 4.2 gm/dl (3.4-5.0) Lipase 118 U/L (73-393) Human Chorionic Gonadotropin, Qual NEG (NEG) Bedside Troponin I < 0.030 ng/ml (0-0.045) Medications Administered Medications (Trade) Dose Ordered Sig/Nia Route Start Time Stop Time Status Last Admin Dose Admin Ketorolac Tromethamine (Toradol Inj) 10 mg NOW STAT IV 01/24/18 21:55 01/24/18 21:56 DC 01/24/18 22:22 10 MG Lidocaine HCl (Viscous Lidocaine 2% Soln) 10 ml NOW STAT PO 01/25/18 00:43 01/25/18 00:45 DC 01/25/18 00:57 10 ML Al Hydroxide/Mg Hydroxide (Maalox Susp) 30 ml NOW STAT PO 01/25/18 00:43 01/25/18 00:45 DC 01/25/18 00:57 30 ML ED Course Prior records/ancillary studies reviewed. Triage Nursing notes reviewed. Additional history obtained from family. The patient's history was concerning for back and chest pain. Differential diagnosis: Etiologies such as cardiac ischemia, aortic dissection, pulmonary embolism, pneumonia, pneumothorax, musculoskeletal, infections, pericarditis, myocarditis , esophageal rupture, gastrointestinal, as well as others were entertained. Physical examination: As above. ER treatment provided: Toradol On reassessment the patient felt better. Diagnostic interpretation by me: The electrocardiogram was negative for pathologic change. Normal sinus, normal intervals, no acute ST-T wave changes, rate of 92. Impression normal sinus rhythm interpreted by myself The labs revealed 2 negative troponins greater than 2 hours apart. Slightly elevated d-dimer. Imaging studies: Chest x-ray with no acute consolidation, pneumothorax free of my interpretation CTA negative for PE per stat radiology. Exam and history seem consistent with back pain and chest pain that could be muscular in etiology. Patient felt better after being medicated as above. She had a normal EKG and 2 negative troponins. Negative CTA. Patient was neurovascularly and neurologically intact. She is advised to follow-up family care in a few days for further evaluation and treatment or here in the ER sooner for chest pain, difficulty breathing, diaphoresis, worsening signs or symptoms or as needed. By the evaluation outlined above emergent etiologies such as cardiac ischemia, aortic dissection, pulmonary embolism, pneumonia, pneumothorax, infections, pericarditis, myocarditis, gastrointestinal, as well as others were deemed relatively unlikely. The pt informed about the findings as listed above. All questions were answered and pleased with the treatment. Return instructions were outlined and the patient was discharged in stable condition. Referral: The patient was referred back to primary care physician for follow-up in 2 to 3 days for a recheck of the current condition. Case reviewed with my attending The chart was completed utilizing [employer] Speech voice recognition software. Grammatical errors, random word insertions, pronoun errors, and incomplete sentences are an occassional consequence of this system due to software limitations, ambient noise, and hardware issues. Any formal questions or concerns about the content, text, or information contained within the body of this dictation should be directly addressed to the physician seed analysis laboratory assistant for clarification. Medical Decision As above Medication Reconcilliation Current Medication List: was personally reviewed by me Blood Pressure Screening Patient's blood pressure: Normal blood pressure Impression Primary Impression: Chest pain Additional Impression: Mid back pain Departure Information Dispostion Home / Self-Care Condition GOOD Referrals Sachin PatD.O. Forms HOME CARE DOCUMENTATION FORM, Work Instructions, Return To Work: 2 days IMPORTANT VISIT INFORMATION Patient Instructions Chest Pain - [facility], Back Pain - [facility], [facility] Additional Instructions Ibuprofen(Motrin, Advil) may be used for fever or pain. Use 600mg every six hours as needed. Take with food. Avoid using more than 2400mg in a 24 hour period. Do not use 2400mg per day for more than three consecutive days without physician direction. Prolonged inappropriate use can lead to stomach upset or ulcers. This medication can be taken if you need to drive, work, or perform activities which may be dangerous when taking narcotic pain medication. (AND/OR) Acetaminophen(Tylenol) may be used for fever or pain. Use 1000mg every six hours as needed. Avoid using more than 3000mg in a 24 hour period. This medication can be taken if you need to drive, work, or perform activities which may be dangerous when taking narcotic pain medication. Rest and avoid heavy lifting until your symptoms resolve and then gradually return to full activity. A good rule of thumb is if it hurts your back to perform a certain activity, then it should be avoided until you are healthy again. A heating pad, warm compresses, or a hot shower may help with tight muscles and can be done several times a day as needed. Continue current medications. Return to the ER immediately for any numbness, chest pain, difficulty breathing , tingling, severe pain, loss of control of your bowels or bladder, inability to walk, or as needed. Follow up with your primary care physician/orthopedics spine within 3-5 days for a recheck of your current condition. Work Instructions Return To Work: 2 days Problem Qualifiers Primary Impression: Chest pain Chest pain type: unspecified Qualified Codes: R07.9 - Chest pain, unspecified
--- NOTE | 2018-01-25 08:00 | DIAGNOSTIC IMAGING REPORT ---
CHEST CTA for PULMONARY ARTERIES CT DOSE: 614.91 mGy.cm HISTORY: Atypical chest pain. Dyspnea. TECHNIQUE: Multiaxial CT images of the chest were performed following the intravenous administration of contrast to evaluate the pulmonary arteries. Maximal intensity projection images were also obtained. A dose lowering technique was utilized adhering to the principles of ALARA. COMPARISON STUDY: Abdomen and pelvis CT 04/13/2017. FINDINGS: There is a normal caliber thoracic aorta with no evidence for dissection. There is no evidence for pulmonary embolus. No pleural effusions. No pneumothorax. The liver and spleen are unremarkable. No mediastinal or hilar lymphadenopathy. The central airways are patent. No focal lung consolidations to suggest pneumonia. Mosaic attenuation within the lungs. Cholecystectomy. IMPRESSION: 1. No evidence for pulmonary embolus. 2. Mosaic attenuation within the lungs. This is consistent with air trapping and can be seen in the setting of small airways disease. Electronically signed by: Hunter Vidales M.D. 01/25/2018 7:59 AM Dictated Date/Time: 01/25/2018 7:40 AM
== END 2018-01-25 01:28 | disposition home or self-care (01) ==
LOC: C.EDB 20:38
DX: R07.9 Chest pain, unspecified (principal); M54.6 Pain in thoracic spine; R10.13 Epigastric pain; F17.200 Nicotine dependence, unspecified, uncomplicated

== ENCOUNTER → 2018-06-27 | Outpatient (CLI) | payer OTHER ==
[~2018-06-27] MED LIST changes: +ASPI-390 PO; -ATROPINE SULFATE 0.1 MG/ML 5ML SYR IV PRN; +CALC500C3 PO; -DEXAMETHASONE SOD INJ 4 MG/ML VIAL ONE; -EpHEDrine SULFATE INJ 50 MG/ML AMP IV PRN; -FENTANYL CITRATE INJ 50 MCG/1 ML 2 ML VIAL IV PRN; -FENTANYL CITRATE INJ 50 MCG/1 ML 2 ML VIAL ONE; -FLUMAZENIL 0.1 MG/1 ML 10 ML VIAL IV PRN; -HYDROmorphone INJ 2 MG/ML SYR/VIAL IV PRN; -IBUPROFEN 600 MG TAB PO PRN; -KETOROLAC TROMETHAMINE 30 MG/ML VIAL IV. PRN; -LABETALOL HCL IV 5 MG/ML 20ML IV PRN; -LACTATED RINGER'S 1000ML 1,000 ML IV SCH; -LIDOCAINE HCL 2% 2 ML VIAL (20MG/ML) ONE; -MEPERIDINE HCL 25 MG/ML CARP IV PRN; -METOCLOPRAMIDE HCL INJ 5 MG/ML 2 ML VIAL IV PRN; -MIDAZOLAM HCL 1 MG/ML 2ML VIAL ONE; -NALOXONE HCL 0.4 MG/1 ML VIAL/CARP IV PRN; -ONDANSETRON INJ 2 MG/ML 2 ML VIAL IV PRN; -ONDANSETRON INJ 2 MG/ML 2 ML VIAL ONE; -OXYCODONE/ACETAMINOPHEN 5-325 TAB PO PRN; -PHENYLEPHRINE 100MCG/ML 5ML SYR IV PRN; -PROPOFOL IV EMULSION 10 MG/ML 20 ML VIAL IV ONE; -SODIUM CHLORIDE 0.9% 1000ML 1,000 ML IV SCH
[2018-06-27 10:25] LABS: ALBUMIN 4.2 gm/dl (3.4-5.0); ALKALINE PHOSPHATASE 41 U/L (45-117); ALT/SGPT 34 U/L (12-78); AST/SGOT 17 U/L (15-37); BLOOD UREA NITROGEN 12 mg/dl (7-18); CALCIUM 9.2 mg/dl (8.5-10.1); CARBON DIOXIDE 19 mmol/L (21-32); CHOLESTEROL 164 mg/dl (0-200); CREATININE 0.82 mg/dl (0.60-1.20); GLUCOSE 94 mg/dl (70-99); LDL CHOLESTEROL CALCULATED 115 mg/dl; POTASSIUM 3.6 mmol/L (3.5-5.1); SODIUM 136 mmol/L (136-145); TOTAL PROTEIN 7.9 gm/dl (6.4-8.2)
== END | disposition home or self-care (01) ==
LOC: C.LAB1850 08:40
PROVIDERS: ATTEND Internal Medicine
DX: E66.3 Overweight (principal)